=== PATIENT | male | born 1945 | race Caucasian/White ===

== ENCOUNTER 2025-03-29 09:13 | Emergency (ER) | payer MEDICARE, BC, SELFPAY ==
--- OUTSIDE RECORDS SUMMARY | 2025-03-29 09:17 | XMS_ITS | Clinical Summary ---
Author Organization [facility] Address [address] [place] [id number] Care Team Providers Care Editorial Clerk Name Role Phone Brandon Truong MD Primary Care Provider Allergies Active Allergy Reactions Criticality Noted Date Comments Fentanyl Tremors 03/05/2011 Hydrocodone-Acetaminophen GI Upset 03/05/2011 Medications diphenhydrAMINE (BENADRYL) 25 mg capsule Take 1 capsule by mouth every 4 hours if needed. 90 capsule 1 08/04/19 13 Active ibuprofen (ADVIL; MOTRIN) 200 mg tablet Take 1 tablet by mouth 2 times daily if needed for Pain. 0 10/20/19 14 Active acetaminophen (TYLENOL EXTRA STRENGTH) 500 mg tabletIndications :Biliary dyskinesia Take 1-2 tablets by mouth every 6 hours if needed (pain). Max acetaminophen dose: 4000mg in 24 hrs. Use over the counter supply 0 01/19/20 20 Active aspirin (ECOTRIN) 81 mg enteric coated tablet Take 81 mg by mouth once daily with a meal. Active psyllium powdIndications:C hronic constipation Take 1 tsp by mouth once daily if needed for Constipation. 1 Container 11 09/29/19 21 Active polyethylene glycoL (MIRALAX) 17 gram/dose powderIndications :Chronic constipation Take 17 g by mouth once daily if needed for Constipation. 1 jar 3 09/29/19 21 Active atenoloL (TENORMIN) 100 mg tabletIndications :Benign essential HTN Take 1 Tablet (100 mg) by mouth once daily. 90 Tablet 3 02/03/20 25 Active atorvastatin (LIPITOR) 20 mg tabletIndications :Hyperlipidemia, unspecified hyperlipidemia type Take 1 Tablet (20 mg) by mouth at bedtime. 90 Tablet 02/03/20 25 Active hydroCHLOROthiazi de 25 mg tabletIndications :Benign essential HTN Take 1 Tablet (25 mg) by mouth once daily. 90 Tablet 3 02/03/20 25 Active pantoprazole (PROTONIX) 40 mg delayed-release tabletIndications :Gastroesophageal reflux disease, unspecified whether esophagitis present Take 1 Tablet (40 mg) by mouth once daily before a meal. 90 Tablet 3 02/03/20 25 Active tamsulosin 0.4 mg capsuleIndication s:BPH without urinary obstruction Take 1 Capsule (0.4 mg) by mouth once daily after a meal. 90 Capsule 3 02/03/20 25 Active cyanocobalamin (VITAMIN B12) 1,000 mcg tabletIndications :Vitamin B 12 deficiency Take 1 Tablet (1,000 mcg) by mouth once daily. 90 Tablet 3 02/03/20 25 Active Xdemvy 0.25 % drop INSTILL 1 DROP IN BOTH EYES TWICE DAILY FOR 6 WEEKS 01/15/20 25 025 Active Problems Problem Noted Date Diagnosed Date Vitamin B 12 deficiency 10/26/2021 Overview (11/17/2021): pretx level 192. Benign neoplasm of transverse colon 05/17/2019 Polyp of colon 05/13/2019 Diverticular disease of large intestine 05/13/20 19 S/P ascending aortic aneurysm repair 10/22/2013 Overview (10/22/2013): Repair of ascending aortic aneurysm with a 34 mm straight Hemashield graft--10/22/2013 Dr. 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 BCC (basal cell carcinoma of skin) 03/05/2011 Overview (10/19/2013): R ear, right forearm Diverticula of small intestine 03/05/2011 Overview (03/30/2024): History of small bowel perforation in 2007 in [place]. Thought to possibly related to small bowel diverticulum. Treated conservatively(abx). Allergic rhinitis 03/05/2011 BPH (benign prostatic hyperplasia) 03/05/2011 Prediabetes Resolved Problems Problem Noted Date Diagnosed Date Resolved Date Chronic right shoulder pain 11/20/2022 02/02/2025 Cervical radiculopathy 10/26/201211/16 Ascending aortic aneurysm 04/09/2011 Hernia, inguinal, right 03/05/201102/26 Nonspecific abnormal electro cardiogram (ECG) (EKG) 03/05/2011 10/26/2012 LVH (left ventricular hypertrophy) 03/05/2011 04/09/2011 Encounters Date Type Department Care Team Description 03/29/2025 Nurse Triage [address] [address] Brandon Truong MD Syncope 03/03/2025 10:00 AM CDT Ancillary Procedure [facility] [address] [place] [address] 03/03/2025 Travel 02/02/2025 9:40 AM CDT Office Visit [address] [address] Brandon Truong MD Medicare ANNUAL (subsequent) Visit (79 year old); Derm Problem (Red bumps on legs) 02/02/2025 Travel 01/28/2025 Travel 01/26/[address] [address] Brandon Truong MD Refill Request (Tamsulosin, Atorvastatin, Pantoprazole, Atenolol, Hydrochlorothiazide ) from Last 3 Months Immunizations Immunization Administration Dates Next Due COVID-19 VACCINE SPIKEVAX (M ODERNA 50MCG/0.5ML) 12YO+ PFS 02/02/2025,01/27/2024 COVID-19 vaccine ([employer] NTech 30mcg/0.3mL) 12YO+ EAGLE-SUCROSE PF, MDV 11/16/2021 COVID-19 vaccine ([employer]Bio NTech 30mcg/0.3mL) PF, MDV 05/14/2021,10/10/2020,09/19/2020 Influenza, High-dose Inactivated 10/18/2014 Influenza, High-dose Quadriv alent Inactivated 05/14/2021 Influenza, IIV3 (Age >=3 years) 03/24/2012 Influenza, Inactivated AIIV4 (Age 65+ Years) Preserv Free 04/08/2023 Influenza, Inactivated IIV3 (Age 65+ Years) Preserv Free 07/27/2019,09/09/2017 Pneumococcal Conj 20-valent (Prevnar 20) 023 Pneumococcal Poly,23-Valent (Pneumovax) 10/27/19 13 Pneumococcal conj 13-Valent (Prevnar 13) 018 Tdap 10/31/2015 Family History Medical History Relation Name Comments Cancer Father lung cancer Heart Disease Maternal Grandfather unknow n heart issue Hypertension Mother Other Mother from compl ications of pneumonia Anesthesia Problem No Family History Cancer-colon No Family History Cancer-prostate No Family History Diabetes No Family History Relation Name Status Comments Father Maternal Grandfather Mother Social History Tobacco Use Types Packs/Day Years Used Date Smoking Tobacco: Former Cigarettes 0.8 7 0 07/28/1975 - 07/28/1982 Smokeless Tobacco: Never Tobacco Cessation:Counseling Given: No Alcohol Use Standard Drinks/Week Comments Yes 0 (1 standard drink = 0.6 oz pur e alcohol) 1 glass of wine per evening PHQ-2 Answer Date Recorded PHQ-2 TOTAL SCORE 0 02/02/2025 Social Connections Answer Date Recorded Do you often feel lonely or isolated from those around you? 0 01/28/2025 Financial Resource Strain Answer Date R ecorded Difficulty of Paying Living Expenses 3 01/28/2025 Difficulty of Paying Living Expenses Not on file 01/28/2025 Food Insecurity Answer Date Recorded Do you worry your food will run out before you are able to buy more? 1 01/28/2025 Transportation Needs Answer Date Record ed Does lack of transportation keep you from medica l appointments? 1 01/28/2025 Does lack of transportation keep you from work, meetings or getting things that you need? 1 01/28/2025 Housing Stability Answer Date Recorded What is your housing situation today? 1 01/28/2025 Utilities Answer Date Recorded Do you have trouble paying f or utilities (for example, heat, electricity, water, phone)? 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 Gender Identity Not on file Sexual Orientation Not on file Obstetrics History Last Filed Vital Signs Vital Sign Reading Time Taken Comments Blood Pressure 111/71 02/02/2025 9:50 AM CDT Pulse 68 02/02/2025 9:50 AM CDT Temperature 36.6 C (97.9 F) 11/16/2021 9:22 AM CDT Respiratory Rate 16 01/19/2020 10:25 PM CDT Oxygen Saturation 96% 02/02/2025 9:50 AM CDT Inhaled Oxygen Concentration - - Weight 79.5 kg (175 lb 3.2 oz) 02/02/2025 9:50 A M CDT Height 173 cm (5' 8.11) 02/02/2025 9:50 AM CDT Body Mass Index 26.55 02/02/2025 9:50 AM CDT Plan of Treatment Health Maintenance Due Date Last Done Comments Zoster (shingles) series for age 50+ (1 of 2) 1997 RSV vaccine for adults or (1 - 1-dose 75+ series) 2022 Influenza Vaccine (#1) 2025 , 07/27/2019, 09/09/2017, Additional history exists COVID-19 vaccine series ( season) 2025 02/02/2025, 01/27/2024, 07/22/2023, Additional history exists Tetanus booster 10/30/2025 10/31/2015, 11/2015 (Completed outside of [facility]), 04/09/2003 (Completed outside of [facility]) BMI (ht and wt on same day) for age 18+ 02/02/2026 02/02/2025, 01/27/2024, 04/08/2023, Additional history exists Depression screening for age 12+ 02/02/2026 02/02/2025, 01/28/2024, 01/27/2024, Additional history exists Medicare Wellness for age 65+ 02/03/2026 02/02/2025, 01/27/2024, 11/20/2022, Additional history exists Hepatitis C screening for age 18-79 Completed 11/17/2017, 10/22/2013 Pneumococcal series for age 50+ Completed 11/20/2022, 09/09/2017, 10/26/2012 Hepatitis B series for 19+ Aged Out N o longer eligible based on patient's age to complete this topic Medical Devices Implanted Type Area Blender Device Identifier Shelf Expiration Date Model / Serial / Lot Graft Woven 34mm Stra Hemashield [id number] [employer] - [id number] Implanted:Qty: 1 on 10/22/2013 by Molina Fitzgerald MD at [facility] [employer] [id number] / / Procedures Procedure Name Priority Date/Time Associated Diagnosis Comments ECHO TTE COMPLETE WO CONTRAST Routine 03/03/2025 10:33 AM CDT Benign essential HTN LIPID PANEL W REFLEX MEASURED LDL Routine 02/02/2025 10:39 AM CDT Hyperlipidemia, unspecified hyperlipidemia type HEMOGLOBIN A1C Routine 02/02/2025 10:39 AM CDT Prediabetes VITAMIN B12 Routine 02/02/2025 10:39 AM CDT Vitamin B 12 deficiency BASIC METABOLIC PANEL Routine 02/02/2025 10:39 AM CDT Benign essential HTN VITAMIN D 25 (DEFICIENCY) Routine 02/02/2025 10:39 AM CDT Vitamin D deficiency ANTI HCV Routine 11/17/2017 8:11 AM CDT Need for hepatitis C screening test from Last 3 Months or Most Recently Relevant to Health Maintenance Results * ECHO TTE COMPLETE WO CONTRAST (03/03/2025 10:33 AM CDT) AORTIC VALVE MEAN PG 8 mmHg EJECTION FRACTION 63 % PEAK TR VELOCITY 2.4 m/s LVEDD 5.7 cm Anatomical Region Laterality Modality Ultrasound 03/03/2025 10:0 9 AM CDT Narrative 03/03/2025 11:03 AM CDT 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 Procedure: 2D, Color Doppler and Spectral Doppler. Indication for study: Benign essential HTN Cardiac Rhythm: Normal sinus.Study quality: Good. Final Impressions: 1. Mildly increased left ventricular size, normal wall thickness, normal global systolic function, calculated EF of 63 %. 2. Mildly enlarged left atrium. 3. Right ventricular cavity size is normal, global systolic RV function is normal. 4. The aortic valve is bicuspid and sclerotic, no stenosis and no regurgitation. 5. Dilated sinus of Valsalva, diameter of 4.5 cm (upper limit of normal for age, sex, and BSA is 4.1 cm), Height Index 2.59 cm/m. 6. Normal sized ascending aorta, diameter of 3.9 cm (upper limit of normal for age, sex, and BSA is 4.3 cm), Height Index 2.24. (reportedly s/p ascending aortic replacement/repair). Comparison Compared to prior exam report of 01/03/2023, there has been no significant change. LV and LA dimensions are mildly larger. Chamber Sizes and Function Mildly increased left ventricular size, normal wall thickness, normal global systolic function, calculated EF of 63 %. No resting regional wall motion abnormality visualized. Left atrial size is mildly enlarged. Left atrial pressure is indeterminate. Right ventricular cavity size is normal, global systolic RV function is normal. RV wall thickness is normal. The right atrium is normal. Right atrial volume index is 26 ml/m . The pulmonary artery is of normal size and origin. The sinus of Valsalva is dilated. The ascending aorta is normal sized. Valves, RV Pressures and Diastolic Function The aortic valve is bicuspid and sclerotic, no stenosis and no regurgitation. The mitral valve is normal in structure, trace mitral regurgitation. Spectral Doppler shows Grade 1 pattern of LV diastolic filling. The tricuspid valve is normal in structure, trace tricuspid regurgitation. The tricuspid regurgitant velocity is 2.4 m/s, the estimated right ventricular systolic pressure is 22 mmHg plus right atrial pressure. There is normal estimated pulmonary pressure by tricuspid regurgitation velocity and right atrial pressure. The pulmonic valve is normal. Trace pulmonary regurgitation. Pulmonary veins show a normal flow pattern. Masses, Effusion, Shunts There is no pericardial effusion. The inferior vena cava is normal sized, respiratory size variation greater than 50%. No left to right shunting was detected by limited color flow Doppler interrogation of the interatrial septum. MEASUREMENTS AND CALCULATIONS 2-D Measurements and LV Function: LVID (d) 5.7 cm Planimetered EF 63 % LVID (s) 3.5 cm LV FS% (2D) 40 % IVS (d) 1.0 cm LVOT diameter 2.4 cm LVPW (d) 1.0 cm HR 62 bpm Ao Sinus 4.5 cm LA Vol index 41 ml/m2 Ao Sinus ULN 4.1 cm RA Vol index 26 ml/m2 Asc Ao 3.9 cm RV Basal Diam 3.8 cm Asc Ao ULN 4.3 cm RV Mid Diam 2.5 cm Diastology: Mitral Tissue Doppler Pulmonary veins E Peak 0.7 m/s e', Septum 0.06 m/s Pulm s 51.4 cm/s A Peak 0.8 m/s e', Lateral 0.06 m/s Pulm d 40.2 cm/s E/A 0.8 E/e' Average 10.31 Pulm s/d ratio 1.28 DT 182 msec Aortic Valve: Vmax 1.8 m/s BHUMIKA (V) 2.14 cm VTI 0.43 m BHUMIKA (I) 2.15 cm LVOT V max 0.8 m/s Max PG 12 mmHg LVOT VTI 0.20 m Mean PG 8 mmHg SV 92 ml Dim Index 0.48 SV index 47 ml/m CO 5.7 l/min CI 2.9 l/min/m Mitral Valve: MVA 4.2 cm MR TVI 1.85 m MV P 1/2 53 msec MV Mean G 2 mmHg MV VTI 0.36 m Tricuspid Valve and estimated PA pressures: TR Vmax 2.4 m/s TAPSE 2.0 cm TR maxG 22 mmHg Pulmonic Valve: PV Vmax 0.9 m/s . This study was interpreted by an [facility] accredited facility. 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 Procedure: 2D, Color Doppler and Spectral Doppler. Indication for study: Benign essential HTN Cardiac Rhythm: Normal sinus.Study quality: Good. Final Impressions: 1. Mildly increased left ventricular size, normal wall thickness, normalglobal systolic function, calculated EF of 63 %. 2. Mildly enlarged left atrium. 3. Right ventricular cavity size is normal, global systolic RV functionis normal. 4. The aortic valve is bicuspid and sclerotic, no stenosis and noregurgitation. 5. Dilated sinus of Valsalva, diameter of 4.5 cm (upper limit of normalfor age, sex, and BSA is 4.1 cm), Height Index 2.59 cm/m. 6. Normal sized ascending aorta, diameter of 3.9 cm (upper limit ofnormal for age, sex, and BSA is 4.3 cm), Height Index 2.24. (reportedlys/p ascending aortic replacement/repair). Comparison Compared to prior exam report of 01/03/2023, there has been no significantchange. LV and LA dimensions are mildly larger. Chamber Sizes and Function Mildly increased left ventricular size, normal wall thickness, normalglobal systolic function, calculated EF of 63 %. No resting regional wallmotion abnormality visualized. Left atrial size is mildly enlarged. Leftatrial pressure is indeterminate. Right ventricular cavity size is normal,global systolic RV function is normal. RV wall thickness is normal. Theright atrium is normal. Right atrial volume index is 26 ml/m . Thepulmonary artery is of normal size and origin. The sinus of Valsalva isdilated. The ascending aorta is normal sized. Valves, RV Pressures and Diastolic Function The aortic valve is bicuspid and sclerotic, no stenosis and noregurgitation. The mitral valve is normal in structure, trace mitralregurgitation. Spectral Doppler shows Grade 1 pattern of LV diastolicfilling. The tricuspid valve is normal in structure, trace tricuspidregurgitation. The tricuspid regurgitant velocity is 2.4 m/s, theestimated right ventricular systolic pressure is 22 mmHg plus right atrialpressure. There is normal estimated pulmonary pressure by tricuspidregurgitation velocity and right atrial pressure. The pulmonic valve isnormal. Trace pulmonary regurgitation. Pulmonary veins show a normal flowpattern. Masses, Effusion, Shunts There is no pericardial effusion. The inferior vena cava is normal sized,respiratory size variation greater than 50%. No left to right shunting wasdetected by limited color flow Doppler interrogation of the interatrialseptum. MEASUREMENTS AND CALCULATIONS 2-D Measurements and LV Function: LVID (d) 5.7 cm Planimetered EF 63 % LVID (s) 3.5 cm LV FS% (2D) 40 % IVS (d) 1.0 cm LVOT diameter 2.4 cm LVPW (d) 1.0 cm HR 62 bpm Ao Sinus 4.5 cm LA Vol index 41 ml/m2 Ao Sinus ULN 4.1 cm RA Vol index 26 ml/m2 Asc Ao 3.9 cm RV Basal Diam 3.8 cm Asc Ao ULN 4.3 cm RV Mid Diam 2.5 cm Diastology: Mitral Tissue Doppler Pulmonary veins E Peak 0.7 m/s e', Septum 0.06 m/s Pulm s 51.4 cm/s A Peak 0.8 m/s e', Lateral 0.06 m/s Pulm d 40.2 cm/s E/A 0.8 E/e' Average 10.31 Pulm s/d ratio 1.28 DT 182 msec Aortic Valve: Vmax 1.8 m/s BHUMIKA (V) 2.14 cm VTI 0.43 m BHUMIKA (I) 2.15 cm LVOT V max 0.8 m/s Max PG 12 mmHg LVOT VTI 0.20 m Mean PG 8 mmHg SV 92 ml Dim Index 0.48 SV index 47 ml/m CO 5.7 l/min CI 2.9 l/min/m Mitral Valve: MVA 4.2 cm MR TVI 1.85 m MV P 1/2 53 msec MV Mean G 2 mmHg MV VTI 0.36 m Tricuspid Valve and estimated PA pressures: TR Vmax 2.4 m/s TAPSE 2.0 cm TR maxG 22 mmHg Pulmonic Valve: PV Vmax 0.9 m/s . This study was interpreted by an [facility] accredited facility. Final Brandon Truong MD ECHO ORD Final Result * (ABNORMAL) HEMOGLOBIN A1C (02/02/2025 10:39 AM CDT) HEMOGLOBIN A1C 5.8(H) <5.7 % [facility] Comment: For someone without known diabetes, a hemoglobin A1c value between 5.7% and 6.4% is consistent with prediabetes and should be confirmed with a follow-up test. For someone with known diabetes, a value <7% indicates that their diabetes is well controlled. A1c targets should be individualized based on duration of diabetes, age, comorbid conditions, and other considerations. This assay result is consistent with an increased risk of diabetes. Currently, no consensus exists regarding use of hemoglobin A1c for diagnosis of diabetes for children. Blood BLOOD SPECIMEN / Unknown 02/02/2025 10:39 AM CDT 02/02/2025 10:40 AM CDT us Brandon Truong MD CHEMISTRY Final Result [facility] [address] [place] [address], [facility] [address] [place] [address] * LIPID PANEL W REFLEX MEASURED LDL (02/02/2025 10:39 AM CDT) CHOLESTEROL, TOTAL 123 <200 mg/dL [facility] HDL CHOLESTEROL 44 > OR = 40 mg/dL [facility] TRIGLYCERIDES 77 <150 mg/dL [facility] Hernandeze LDL-CHOLESTEROL 63 mg/dL (calc) [facility] Comment: Reference range: <100 Desirable range <100 mg/dL for primary prevention; <70 mg/dL for patients with CHD or diabetic patients with > or = 2 CHD risk factors. LDL-C is now calculated using the Ana Laura calculation, which is a validated novel method providing better accuracy than the Friedewald equation in the estimation of LDL-C. Owen RIVERA et al. LASHELL. 2013;310(19): 0781-3367 (http://education.PTS Physicians/faq/MWA249) CHOL/HDLC RATIO 2.8 <5.0 (calc) [facility] NON HDL CHOLESTEROL 79 <130 mg/dL (calc) [facility] Comment: For patients with diabetes plus 1 major ASCVD risk factor, treating to a non-HDL-C goal of <100 mg/dL (LDL-C of <70 mg/dL) is considered a therapeutic option. Blood BLOOD SPECIMEN / Unknown 02/02/2025 10:39 AM CDT 02/02/2025 10:40 AM CDT Brandon Truong MD CHEMISTRY Final Result [facility] [address] [place] [address], [facility] [address] [place] [address] * (ABNORMAL) VITAMIN D 25 (DEFICIENCY) (02/02/2025 10:39 AM CDT) VITAMIN D,25-OH,TOTAL,IA 23(L) 30 - 100 ng/mL [facility] Comment: Vitamin D Status 25-OH Vitamin D: Deficiency: <20 ng/mL Insufficiency: 20 - 29 ng/mL Optimal: > or = 30 ng/mL For 25-OH Vitamin D testing on patients on D2-supplementation and patients for whom quantitation of D2 and D3 fractions is required, the Quest[facility]ure[facility](TM) 25-OH VIT D, (D2,D3), LC/MS/MS is recommended: order code 46854 (patients >2yrs). See Note 1 Note 1 For additional information, please refer to http://education.PTS Physicians/faq/WOQ073 (This link is being provided for informational/ educational purposes only.) Blood BLOOD SPECIMEN / Unknown 02/02/2025 10:39 AM CDT 02/02/2025 10:40 AM CDT Brandon Truong MD SEND OUTS Final Result Performing Organization Address City/[facility]/ZIP Co de Phone Number [facility] [address] [place] [address], [place] [phone] [facility] [address] [place] [address] * VITAMIN B12 (02/02/2025 10:39 AM CDT) VITAMIN B12 854 200 - 1,100 pg/mL [facility]ann [facility] Blood BLOOD SPECIMEN / Unknown 02/02/2025 10:39 AM CDT 02/02/2025 10:40 AM CDT us Brandon Truong MD CHEMISTRY Final Result [facility] [address] [place] [address], [place] [phone] [facility] [address] [place] [address] * (ABNORMAL) BASIC METABOLIC PANEL (02/02/2025 10:39 AM CDT) GLUCOSE 105(H) 65 - 99 mg/dL [facility] Comment: Fasting reference interval For someone without known diabetes, a glucose value between 100 and 125 mg/dL is consistent with prediabetes and should be confirmed with a follow-up test. UREA NITROGEN (BUN) 17 7 - 25 mg/dL [facility] CREATININE 0.85 0.70 - 1.28 mg/dL [facility] EGFR 89 > OR = 60 mL/min/1. 73m2 [facility] BUN/CREATININE RATIO SEE NOTE: 6 - 22 (calc) [facility] Comment: Not Reported: BUN and Creatinine are within reference range. SODIUM 142 135 - 146 mmol/L [facility] POTASSIUM 4.1 3.5 - 5.3 mmol/L [facility] CHLORIDE 105 98 - 110 mmol/L [facility] CARBON DIOXIDE 28 20 - 32 mmol/L [facility] ELECTROLYTE BALANCE 9 7 - 17 mmol/L (calc) [facility] CALCIUM 9.8 8.6 - 10.3 mg/dL [facility] [facility] Blood BLOOD SPECIMEN / Unknown 02/02/2025 10:39 AM CDT 02/02/2025 10:40 AM CDT Brandon Truong MD CHEMISTRY Final Result [facility] [address] [place] [address], [facility] [address] [place] [address] * ANTI HCV (11/17/2017 8:11 AM CDT) [facility] HEPATITIS C ANTIBODY Non-React ruiz Non-React ruiz 11/17/2017 3:11 PM CDT [facility] Comment:Antibodies to HCV no t detected; does not exclude the possibility of exposure to HCV. Blood BLOOD SPECIMEN / Unknown Venipuncture / Unknown 11/17/2017 8:11 AM CDT 11/17/2017 8:12 AM CDT Brandon Truong MD SEND OUTS Final Result [facility] [address] [place] [address], [place] from Last 3 Months or Most Recently Relevant to Health Maintenance Insurance MEDICARE PART B HB ONLY MEDICARE PART A HB ONLY [employer] [place] [place] BLUE MR PB ONLY [employer] [place] BLUE HB ONLY MEDICARE PART A HB ONLY MEDICARE PART B HB ONLY [place] Advance Directives * Full Code (Latest Code Status on File) Date Activated Date Inactivated Comments 01/19/2020 8:29 AM 01/20/2020 1:12 PM * Full Code Date Activated Date Inactivated Comments 01/19/2020 8:29 AM 01/19/2020 8:29 AM * Full Code Date Activated Date Inactivated Comments 10/22/2013 10:55 AM 10/28/2013 2:19 PM * Full Code Date Activated Date Inactivated Comments 10/22/2013 6:13 AM 10/22/2013 10:55 AM * Full Code Date Activated Date Inactivated Comments 10/19/2013 10:13 AM 10/19/2013 6:07 PM Care Teams Editorial Clerk Relationship Specialty Start Date End Date Brandon Truong MD [address] [place] [address] PCP - General Family Practice 03/11/17
[2025-03-29 09:24] VITALS: BP 119/65; PULSE 64; RESP 18; TEMP 36.2; O2SAT 97
--- NOTE | 2025-03-29 09:34 | ED_ITS ---
HPI - General Adult General Time Seen by Provider: 09:34 Date Seen: 03/29/25 Chief complaint: Weakness Stated complaint: Triage by [facility]- sent him here, passed out 03/28 Time Seen by Provider: 03/29/25 09:34 Source: patient, RN notes reviewed and old records reviewed Mode of arrival: ambulatory Limitations: no limitations History of Present Illness HPI narrative: This 79-year-old male was referred by a [facility] triage after having a syncopal episode yesterday. Patient had been outside in the sun pro testing for about 45 minutes. He did have a hat, did wear a sun shirt. he came home and was eating dinner with a half a glass of wine. He started to feel unwell with lightheadedness. His noted him moving his jaw side to side which she will do when he is stressed. He proceeded to slump forward and was not responding. There was a period where she felt like he was not breathing and then he may had gasping noise and started breathing. This went on for about a minute. Afterwards he remembers the events. He was clammy, had some diarrhea and nausea. He rested after that and felt normal. They called the triage today and they advised him to come to the ER. He states his stomach feels like there is a little butterflies like he is nervous about the events of yesterday. He did not feel any sense of irregular heart rate, faster slow heart rate, no chest pain, no shortness of breath. He has noted no neurologic change. Review of his [facility] chart show prior diagnoses of hypertension, left anterior fascicular hemiblock, diastolic dysfunction, bicuspid aortic valve, status post ascending aortic aneurysm repair, onychomycosis, basal cell carcinoma, hyperlipidemia, prediabetes, vitamin B12 deficiency, allergic rhinitis, GERD, diverticula of small intestine, benign neoplasm of colon with last colonoscopy in chart listed 2018, diverticular disease of large intestine, undescended left testicle, BPH, erectile dysfunction, right hernia repair, cataract surgery, laparoscopic cholecystectomy. Current medications p.r.n. Tylenol, 81 mg aspirin, atenolol 100 mg, atorvastatin 20 mg, B12 1000 mcg tablets, diphenhydramine 25 mg, hydrochlorothiazide a it 25 mg, ibuprofen, Protonix 40 mg, MiraLax, psyllium powder, tamsulosin 0.4 mg. Related Data Allergies Allergy/AdvReac Type Severity Reaction Status Date / Time fentanyl AdvReac Intermediate shakes Verified 03/29/25 09:30 acetaminophen (From Vicodin) AdvReac Mild Nausea Verified 03/29/25 09:30 hydrocodone (From Vicodin) AdvReac Mild Nausea Verified 03/29/25 09:30 Review of Systems Status of ROS: Reports: 6 or more systems reviewed and unremarkable except as noted in History and below PFSH PFS Social History Smoking Status: Unknown if ever smoked How often do you have a drink containing alcohol: 2-3 times a week AUDIT-C Alcohol total score: 3 Exam Const: Vital Signs, click to edit/add: Vital Signs - 24 hr 03/29/25 09:24 03/29/25 10:11 Temperature 97.2 F L Pulse Rate [Pulse Oximeter] 64 Respiratory Rate 18 Blood Pressure [Ri ght Upper Arm] 119/65 Pulse Oximetry 97 95 Oxygen Delivery Me thod Room Air This 79-year-old male is alert, interactive, no apparent distress. He is ambulatory into the ED of his own accord. Neurologic function 5/5 and symmetric, normal sensation, no tremors, gait normal. Pupils equal round reactive, sclerae clear, extraocular muscles intact, no visual changes on confrontation. Symmetrical facial function, speech is normal. Neck is supple, no adenopathy, no thyromegaly masses or nodules, no jugular venous distension. Lungs are clear, good air entry, no wheezing or crackles, no tachypnea, no accessory muscle use. CV regular rate and rhythm, do not hear any significant murmur at this time, normal S1-S2. Abdomen is soft, nontender, nondistended, no organomegaly, rebound or guarding. , no edema noted. Skin visualized without rash. Documenting provider has reviewed patient's vital signs: yes Course Course ED Course: Have reviewed with patient and his that he would be considered to have a syncopal event yesterday. There can be cerebrovascular causes such as ischemia on and seizure, cardiogenic causes with arrhythmia being 1. Unlikely that he had a heart attack causing syncope and no subsequent issues after. Venous occlusive disease with pulmonary emboli can cause syncope but would not think that he would have a syncopal episode with this significant pulmonary embolus and then no subsequent symptoms. The understands that we will do labs, have him on cardiac monitoring and pulse oximetry. We will do a head CT, obtain an EKG. If his workup is normal here, will likely discharge him to home and discuss further steps. He is back to baseline. They do wonder about heat exhaustion or heat illness. This is a possible explanation but need to consider these other etiologies which can have life-threatening implications. They do understand. They agree to proceed with workup. Reevaluation(s) Time of Reevaluation #1: 11:14 Reevaluation #1: Have reviewed negative head CT, normal D-dimer, normal troponin, no arrhythmias seen on cardiac monitoring while here, no hypoxia seeing while on pulse oximetry here. His labs are reassuring. There is no focal evidence to suggest stroke. Plan is to discharge to home to follow up in clinic. We did discuss completing ZIO patch monitoring, he can get this done with his primary. He understands if he has recurrent events, we do need him to return for further evaluation. His was present with him during the episode yesterday and really does not seem to be consistent with seizure. Vital Signs Vital signs: Initial Vital Signs Temperature 97.2 F L 03/29/25 09:24 Temperature Source Temporal Artery Scan 03/29/25 09:24 Pulse Rate 64 03/29/25 09:24 Respiratory Rate 18 03/29/25 09:24 Blood Pressure 119/65 03/29/25 09:24 Blood Pressure Mean 83 03/29/25 09:24 Pulse Oximetry 97 03/29/25 09:24 Oxygen Delivery Method Room Air 03/29/25 09:24 Vital Signs Temperature 97.2 F L 03/29/25 09:24 Pulse Rate 64 03/29/25 09:24 Respiratory Rate 18 03/29/25 09:24 Blood Pressure 119/65 03/29/25 09:24 Pulse Oximetry 97 03/29/25 09:24 Oxygen Delivery Method Room Air 03/29/25 09:24 Temperature 97.2 F L 03/29/25 09:24 Pulse Rate 64 03/29/25 09:24 Respiratory Rate 18 03/29/25 09:24 Blood Pressure 119/65 03/29/25 09:24 Pulse Oximetry 95 03/29/25 10:11 Oxygen Delivery Method Room Air 03/29/25 09:24 Medical Decision Making Lab Data Lab results reviewed: Yes I reviewed the patient's lab results Labs: Lab Results 03/29/25 Range/Units 10:05 WBC 5.96 (4.50-11.00) K/uL RBC 4.31 (4.30-5.90) m/uL Hgb 13.8 (13.5-17.5) gm/dL Hct 41.0 (37.0-53.0) % MCV 95 (80-100) fL MCH 32 (26-34) pg MCHC 34 (32-36) gm/dL RDW Coeff of Maria Dolores 11.8 (11.5-15.5) % Plt Count 194 (140-440) K/uL Neut % (Auto) 71.5 (42.0-72.0) % Lymph % (Auto) 15.9 L (20-44) % Jerome % (Auto) 10.9 (0.0-11.0) % Eos % (Auto) 1.0 (0.0-7.0) % Baso % (Auto) 0.5 (0.0-3.0) % Neut # (Auto) 4.26 (1.7-7.0) K/uL Lymph # (Auto) 0.90 (0.90-2.90) K/uL Jerome # (Auto) 0.60 (0.00-0.90) K/UL Eos # (Auto) 0.06 (0.00-0.50) K/uL Baso # (Auto) 0.03 (0.00-0.30) K/uL Abs Immat Gran (auto) 0.01 (0.00-0.30) K/uL Imm/Tot Granulo (auto) 0.2 % D-Dimer Quant (PE/DVT) 0.33 (0.00-0.50) ug/ml VBG pH 7.417 (7.32-7.43) VBG pCO2 49 (40-50) mmHG VBG pO2 38.5 (25-47) mmHG VBG HCO3 31 H (21-28) mmol/L Sodium 137 (135-149) mmol/L Potassium 3.8 (3.6-5.1) mmol/L Chloride 102 (96-114) mmol/L Carbon Dioxide 32 (20-32) mmol/L Anion Gap 3 L (7-15) mEq/L BUN 14 (7-30) mg/dL Creatinine 0.8 (0.5-1.5) mg/dL Estimated GFR 91 ml/min Glucose 119 H (60-115) mg/dL Lactate 1.0 (0.5-1.9) mmol/L Calcium 9.6 (8.4-10.6) mg/dL Magnesium 2.1 (1.5-2.6) mg/dL Total Bilirubin 0.7 (0.1-1.5) mg/dL AST 23 (12-35) U/L ALT 18 (4-50) U/L Alkaline Phosphatase 72 (40-150) U/L Troponin I < 0.01 (0.01-0.04) ng/mL C-Reactive Protein < 0.5 L (0.5-1.0) mg/dL NT-Pro-B Natriuret Pep 233 (See Note) pg/mL Total Protein 6.4 (6.0-8.3) g/dL Albumin 3.9 (3.3-5.0) g/dL Imaging Data CT scan - head: Attestation: I have reviewed the pertinent imaging results. Radiologist's impression: Patient: AMPARO DELGADOTOCK Facility:?[facility] Patient ID:?[id number] Site Patient ID:?[id number] Site :?[id number] Study:?CT-Head WITHOUT-03/29/2025 10:20:14 AM Ordering Physician:Asuncion Gale Final Report: INDICATION: Syncopal episode yesterday TECHNIQUE: Head CT without contrast. COMPARISON: None. FINDINGS: CSF spaces: Mildly prominent secondary to generalized volume loss. Brain parenchyma and extra-axial spaces: There are nonspecific low attenuation white matter changes consistent with chronic microvascular disease. No sign of territorial infarct, mass, hemorrhage, or midline shift. Skull base and calvarium: The visualized paranasal sinuses and mastoid air cells demonstrate no acute or significant findings. Bilateral lens replacements. No skull fractures. IMPRESSION: No acute intracranial abnormality. Please note that all CT scans at this facility use dose modulation, iterative reconstruction, and/or weight-based dosing when appropriate to reduce radiation dose to as low as reasonably achievable. Dictated by Angela Mackey MD @ 03/29/2025 10:33:28 AM (Electronic Signature) ECG Data Attestation: I personally reviewed and interpreted this ECG as follows: ( Sinus bradycardia with first-degree AV block, 57 beats per minute. Left axis deviation, criteria for LVH with QRS widening. No evidence of infarct or active ischemia.) Prior ECG tracings: not available for review Discharge Plan Discharge Clinical Impression: Syncope Qualifiers: Syncope type: unspecified Qualified Code(s): R55 - Syncope and collapse Patient Disposition: Home, Self-Care Condition: Stable Instructions: Syncope (ED) Additional Instructions: Please schedule follow-up in clinic [facility], need to discuss doing ZIO patch cardiac monitoring for further workup the spell you had yesterday. It is possible that this could have been heat related but do think you need to proceed with consideration of cardiac arrhythmia and hence getting the cardiac monitoring done outpatient. If you have further episodes or issues in the interim, return to the ED for further evaluation. Activity Level: Activity as Tolerated Follow Up/Referrals: Brandon Truong MD [Primary Care Provider, Family Practice] Stand Alone Forms: light Info Instructions Procedures ABG Interpretation ABG Results: 03/29/25 10:05 VBG pH 7.417 VBG pCO2 49 VBG pO2 38.5 VBG HCO3 31 H
--- NOTE | 2025-03-29 09:49 | CT_ITS ---
Patient: AMPARO BOOKER Facility:?[facility] Patient ID:?[id number] Site Patient ID:?[id number]. Site :?[id number] Study:?CT-Head WITHOUT-03/29/2025 10:20:14 AM Ordering Physician:?Tequila Gale Final Report: INDICATION: Syncopal episode yesterday TECHNIQUE: Head CT without contrast. COMPARISON: None. FINDINGS: CSF spaces: Mildly prominent secondary to generalized volume loss. Brain parenchyma and extra-axial spaces: There are nonspecific low attenuation white matter changes consistent with chronic microvascular disease. No sign of territorial infarct, mass, hemorrhage, or midline shift. Skull base and calvarium: The visualized paranasal sinuses and mastoid air cells demonstrate no acute or significant findings. Bilateral lens replacements. No skull fractures. IMPRESSION: No acute intracranial abnormality. Please note that all CT scans at this facility use dose modulation, iterative reconstruction, and/or weight-based dosing when appropriate to reduce radiation dose to as low as reasonably achievable. Dictated by Angela Mackey MD @ 03/29/2025 10:33:28 AM Signed by:?Angela Mackey MD @03/29/2025 10:33:28 AM (Electronic Signature)
[2025-03-29 10:11] VITALS: O2SAT 95
[2025-03-29 10:12] LABS: HCO3 VBG 31 mmol/L (21-28); Lactate* 1.0 mmol/L (0.5-1.9); PCO2 VBG 49 mmHG (40-50); PO2 VBG 38.5 mmHG (25-47); pH VBG 7.417 (7.32-7.43)
[2025-03-29 10:14] LABS: Hematocrit* 41.0 % (37.0-53.0); Hemoglobin* 13.8 gm/dL (13.5-17.5); Immature Granulocytes Abs Auto 0.01 K/uL (0.00-0.30); Immature Granulocytes Pct Auto 0.2 %; Mean Corpuscular HGB Conc 34 gm/dL (32-36); Mean Corpuscular Hemoglobin 32 pg (26-34); Mean Corpuscular Volume 95 fL (80-100); RDW Coefficient of Variation % 11.8 % (11.5-15.5); Red Blood Count* 4.31 m/uL (4.30-5.90); White Blood Count* 5.96 K/uL (4.50-11.00)
[2025-03-29 10:24] LABS: Lymphocytes Absolute Auto 0.90 K/uL (0.90-2.90); Slide Review Reflex No
[2025-03-29 10:28] LABS: Albumin* 3.9 g/dL (3.3-5.0); Chloride* 102 mmol/L (96-114); Sodium* 137 mmol/L (135-149)
[2025-03-29 10:29] LABS: Potassium* 3.8 mmol/L (3.6-5.1)
[2025-03-29 10:31] LABS: Blood Urea Nitrogen* 14 mg/dL (7-30); Creatinine* 0.8 mg/dL (0.5-1.5); Estimated Glomerular Filt Rate 91 ml/min
[2025-03-29 10:32] LABS: Alanine Aminotransferase* 18 U/L (4-50); Alkaline Phosphatase* 72 U/L (40-150); Anion Gap 3 mEq/L (7-15); Aspartate Amino Transferase* 23 U/L (12-35); Bilirubin Total* 0.7 mg/dL (0.1-1.5); Calcium* 9.6 mg/dL (8.4-10.6); Carbon Dioxide* 32 mmol/L (20-32); Glucose* 119 mg/dL (60-115); Total Protein* 6.4 g/dL (6.0-8.3)
[2025-03-29 10:35] LABS: D Dimer Quantitative* 0.33 ug/ml (0.00-0.50)
[2025-03-29 10:47] LABS: NT Pro B Type NatriureticPept* 233 pg/mL (See Note)
[2025-03-29 11:32] VITALS: BP 115/65; PULSE 58; RESP 16; O2SAT 97
== END 2025-03-29 11:33 | disposition home or self-care (01) ==
PROVIDERS: Emergency Provider Family Medicine; PCP Family Medicine
DX: R55 Syncope and collapse (principal)
CPT/HCPCS: 36415; 70450; 80053; 82803; 83605; 83735; 83880; 84484; 85025; 85379; 86140; 93005; 94761; 99284; 99285